=== PATIENT | male | born 1950 | race Caucasian/White ===

== ENCOUNTER → 2020-08-02 13:20 | Outpatient (BNVA) | payer OTHER, SELFPAY | PROVIDERS: PCP Family Medicine; Visit Provider Specialist | DX: R20.0 Anesthesia of skin (principal); G56.03 Carpal tunnel syndrome, bilateral upper limbs; G56.21 Lesion of ulnar nerve, right upper limb | CPT/HCPCS: 95908; 95910 ==

== ENCOUNTER 2024-11-18 09:20 | Outpatient (CLI) | payer MEDICARE, OTHER, SELFPAY ==
--- NOTE | 2024-11-18 09:45 | US_ITS ---
WS: [id number] URINARY BLADDER ULTRASOUND HISTORY: needs Post void residual for BPH obstructive symptoms COMPARISON: None available. Urinary bladder is well distended. No intraluminal filling defect. No free fluid adjacent to the urinary bladder. Prostate gland is slightly enlarged and heterogeneous. Bladder Wall Thickness: 0.2 cm. Bladder Prevoid: 12.6 cm x 9.5 cm x 10.4 cm. Prevoid volume: 650.5 ml. Bladder Postvoid: 7.4 cm x 8.3 cm x 5.9 cm. Postvoid volume: 191 ml. US/US bladder 18375 IMPRESSION: 1. Normal urinary bladder distention. No intraluminal mass. 2. Moderate post void residual, 191 mL.
== END 2024-11-18 09:21 | disposition home or self-care (01) ==
PROVIDERS: PCP Family Medicine; Visit Provider Family Medicine
DX: R39.14 Feeling of incomplete bladder emptying (principal)
CPT/HCPCS: 73630; 76857